=== PATIENT | male | born 1980 | race Caucasian/White ===

== ENCOUNTER 2021-11-06 08:19 | Emergency (ER) | payer SELFPAY ==
[2021-11-06 08:30] VITALS: TEMP 98.1; BMI 35.9
[2021-11-06 10:19] LABS: BASO % 0.4 % (0-2.0); HEMATOCRIT 44.5 % (35.4-49); LYMPH % 16.3 % (8-40); MCH 28.4 pg (25.7-33.7); MCHC 33.7 g/dl (32.0-35.9); MEAN CELL VOLUME 84.2 fl (80-96); MEAN PLT VOLUME 8.3 fl (7.5-11.1); MONO % 4.9 % (3.8-10.2); NEUT % 78.4 % (42.8-82.8); PLATELET COUNT 327 10^3/uL (134-434); RBC 5.29 M/mm3 (4.00-5.60); RDW 13.5 % (11.9-15.9); WHITE BLOOD COUNT 11.2 K/mm3 (4.0-10.0)
[2021-11-06 10:25] LABS: INR 1.19 (0.83-1.09); PROTHROMBIN TIME (PATIENT) 13.3 SEC (9.7-13.0)
[2021-11-06] MEDS ORDERED: ceFAZolin SODIUM 1 GM VIAL IVPB ONE (10:28)
[2021-11-06] MEDS ORDERED: MIDAZOLAM HCL 2 MG/2 ML SINGLE DOSE VIAL IVPUSH ONE ×2 (10:29→12:14)
[2021-11-06] MEDS ORDERED: KETAMINE HCL 200 MG/20 ML VIAL IVPUSH ONE ×2 (10:29→12:25)
[2021-11-06] MEDS ORDERED: KETAMINE HCL 500 MG/10 ML VIAL ONE (10:39)
[2021-11-06] MEDS ORDERED: MIDAZOLAM HCL 2 MG/2 ML SINGLE DOSE VIAL ONE ×2 (10:40→12:13)
[2021-11-06 10:48] LABS: ALBUMIN 4.3 g/dl (3.4-5.0); BLOOD UREA NITROGEN 15.8 mg/dL (7-18); CALCIUM 9.2 mg/dL (8.5-10.1)
[2021-11-06 10:51] LABS: CREATININE 1.1 mg/dL (0.55-1.3)
[2021-11-06 10:52] LABS: BILIRUBIN,TOTAL 1.4 mg/dL (0.2-1); TOT PROT 8.7 g/dl (6.4-8.2)
[2021-11-06] MEDS ORDERED: KETAMINE HCL 200 MG/20 ML VIAL ONE (11:06)
[2021-11-06] MEDS ORDERED: LIDOCAINE HCL 2% (50ML VIAL) SQ ONE (11:52)
[2021-11-06] MEDS ORDERED: LIDOCAINE HCL 2% (20ML MULTI-DOSE VIAL) ONE (11:53)
[2021-11-06] MEDS ORDERED: ceFAZolin SODIUM 1 GM VIAL ONE (12:07)
[2021-11-06 16:05] VITALS: BP 140/92; PULSE 97
== END 2021-11-06 16:12 | disposition home or self-care (01) ==
LOC: JERFT 08:19 → JER 08:19
PROC: 0SSFXZZ Reposition Right Ankle Joint, External Approach (ICD-10-PCS; principal; 2021-11-06)
PROC: 2W3QX1Z Immobilization of Right Lower Leg using Splint (ICD-10-PCS; 2021-11-06)
PROC: 3E03329 Introduction of Other Anti-infective into Peripheral Vein, Percutaneous Approach (ICD-10-PCS; 2021-11-06)
PROC: 3E033GC Introduction of Other Therapeutic Substance into Peripheral Vein, Percutaneous Approach (ICD-10-PCS; 2021-11-06)
PROC: 3E033GC Introduction of Other Therapeutic Substance into Peripheral Vein, Percutaneous Approach (ICD-10-PCS; 2021-11-06)
PROC: 3E033GC Introduction of Other Therapeutic Substance into Peripheral Vein, Percutaneous Approach (ICD-10-PCS; 2021-11-06)
DX: S82.841A Displaced bimalleolar fracture of right lower leg, initial encounter for closed fracture (principal); W01.0XXA Fall on same level from slipping, tripping and stumbling without subsequent striking against object, initial encounter
CPT/HCPCS: 36415; 73610-TC-RT-FY; 73630-TC-RT-FY; 80053; 85025; 85610; 86850; 86900; 86901; 99285-25